=== PATIENT | male | born 1980 | race Caucasian/White ===

== ENCOUNTER 2016-10-20 01:19 | Emergency (ER) | payer OTHER ==
[~2016-10-20] VITALS: Ht 167.6 cm; Wt 77.5 kg
[2016-10-20] MEDS ORDERED: RISPERIDONE0.5 MG PO (01:52)
[2016-10-20] MEDS ORDERED: ESCITALOPRAM OX20 MG PO (01:52)
[2016-10-20 02:15] LABS: HEMATOCRIT 41.2 % (38.0-50.0); MCHC 33.7 G/DL (30.0-36.0); MCV 85.8 FL (86-99); MEAN PLAT.VOLUME 8.6 uM^3 (9.0-12.4); PLATELET COUNT 292 K/uL (156-360); RBC DIS.WIDTH-CV 12.9 % (11.8-14.6); RBC DIS.WIDTH-SD 40.3 % (39-53); WHITE BLOOD COUNT 7.7 K/uL (4.1-10.2)
[2016-10-20 02:26] LABS: CHLORIDE 104 mEq/L (99-109); POTASSIUM 4.1 mEq/L (3.7-5.4); SODIUM 140 mEq/L (136-147)
[2016-10-20 02:29] LABS: GLUCOSE 97 mg/dL (70-99)
[2016-10-20 02:30] LABS: ANION GAP 9 MEQ/L (2-14)
[2016-10-20 02:31] LABS: TOTAL BILIRUBIN 0.7 mg/dL (0.0-1.0)
[2016-10-20 02:32] LABS: ALKALINE PHOSPHATASE 77 IU/L (3-129); SERUM ETHYL ALCOHOL < 10 mg/dL
[2016-10-20 02:33] LABS: GFR ESTIMATE (CALCULATED) > 59 mL/min/
[2016-10-20 02:34] LABS: UREA NITROGEN (BUN) 12 mg/dL (9-23)
[2016-10-20 03:22] LABS: ADD MIUA? YES; BILIRUBIN NEGATIVE; BLOOD LARGE; COLOR YELLOW ((YELLOW)); GLUCOSE (STRIP) NEGATIVE; KETONES NEGATIVE; LEUKOCYTES NEGATIVE; NITRITE NEGATIVE; PROTEIN (STRIP) 30; SPECIFIC GRAVITY 1.023 (1.000-1.030); UROBILINOGEN 0.2 MG/DL (0.2-1.0)
[2016-10-20 03:31] LABS: AMPHETAMINE NEGATIVE (500 ng/mL); BARBITURATES NEGATIVE (200 ng/mL); BENZODIAZEPINES NEGATIVE (150 ng/mL); COCAINE NEGATIVE (150 ng/mL); INTERNAL CONTROLS VALID? YES; METHADONE NEGATIVE (200 ng/mL); METHAMPHETAMINE NEGATIVE (500 ng/mL); OPIATES (MORPHINE) NEGATIVE (100 ng/mL); OXYCODONE NEGATIVE (100 ng/mL); PHENCYCLIDINE NEGATIVE (25 ng/mL); PROPOXYPHENE NEGATIVE (300 ng/mL); THC CANNABINOIDS NEGATIVE (50 ng/mL); TRICYCLIC ANTIDEPRESSANTS NEGATIVE (300 ng/mL)
[2016-10-20 03:32] LABS: BACTERIA RARE /HPF; EPITHELIAL CELLS NONE SEEN /HPF; MUCUS 1+ /LPF; RED BLOOD CELLS 20-30 /HPF (0-5); UCUL ADDED? NO; WHITE BLOOD CELLS 0-5 /HPF (0-5)
[2016-10-20 13:47] VITALS: BP 120/70
== END 2016-10-20 13:48 ==
LOC: EME 01:19
PROVIDERS: Emergency Medicine
DX: F32.9 Major depressive disorder, single episode, unspecified (principal); F71 Moderate intellectual disabilities; R45.4 Irritability and anger
CPT/HCPCS: 80053; 81003; 85027; 90837; 99281; 99285; G0480

== ENCOUNTER 2016-10-29 22:52 | Emergency (ER) | payer OTHER ==
[~2016-10-29] VITALS: Ht 167.6 cm; Wt 74.9 kg
[~2016-10-29 22:52] MED LIST: ESCITALOPRAM OX20 MG PO; RISPERIDONE0.5 MG PO
[2016-10-30] MEDS ORDERED: ATARAX,VISTARIL50 MG PO (00:28)
[2016-10-30 00:34] VITALS: BP 121/94
== END 2016-10-30 00:38 | disposition home or self-care (01) ==
LOC: EME 22:52 → EXP 22:52
DX: F41.9 Anxiety disorder, unspecified (principal); R06.02 Shortness of breath; R00.2 Palpitations; R25.1 Tremor, unspecified
CPT/HCPCS: 93005; 99281; 99284

== ENCOUNTER 2017-02-27 22:39 | Emergency (ER) | payer OTHER ==
[~2017-02-27] VITALS: Ht 1569.7 cm; Wt 80.4 kg
[~2017-02-27 22:39] MED LIST changes: +ATARAX,VISTARIL50 MG PO
[2017-02-27] MEDS ORDERED: MEDROL DOSEPAK4 MG PO (23:46)
[2017-02-28 00:02] LABS: INTERNAL CONTROL VALID? YES; MONOSPOT (MONONUCLEOSIS SEROL) NEGATIVE
[2017-02-28 00:18] VITALS: BP 127/87
== END 2017-02-28 00:19 | disposition home or self-care (01) ==
LOC: EME 22:39
PROVIDERS: Physician Assistant
DX: J02.9 Acute pharyngitis, unspecified (principal)
CPT/HCPCS: 86308; 87651 90; 99281; 99284